=== PATIENT | male | born 1950 | race Caucasian/White ===

== ENCOUNTER 2018-10-01 06:53 | Day surgery (SDC) | payer OTHER ==
[2018-09-28 09:04] VITALS: BMI 26.6
[2018-10-01] MEDS ORDERED: DEXAMETHASONE SOD PHOSPHATE 4 MG/1 ML VIAL ONE (09:06)
[2018-10-01] MEDS ORDERED: PROPOFOL 20 ML ONE ×2 (09:06→10:44)
[2018-10-01] MEDS ORDERED: LIDOCAINE HCL/PF 2% SDV 5ML VIAL ONE (09:06)
[2018-10-01] MEDS ORDERED: MIDAZOLAM HCL 2 MG/2 ML SINGLE DOSE VIAL ONE (09:07)
[2018-10-01] MEDS ORDERED: BUPIVACAINE HCL/PF 0.5% (5MG/ML) 10 ML VIAL ONE (09:54)
[2018-10-01] MEDS ORDERED: ONDANSETRON 4 MG/2 ML VIAL IVPUSH PRN (10:19)
[2018-10-01] MEDS ORDERED: oxyCODONE HCL 5 MG TABLET PO PRN (10:19)
--- NOTE | 2018-10-01 14:01 | OP ---
Operative Note - Note: Operative Date: 10/01/18 Pre-Operative Diagnosis: bph Operation: transurethral resection and vaporization of the prostate Findings: 3+ obstructive prostate with 2+ trabeculation with cellules Post-Operative Diagnosis: Same as Pre-op Surgeon: Nemesio Brito Anesthesia: Spinal Specimens Removed: prostatic chips Estimated Blood Loss (mls): 40 Drains & Tubes with Location: 24 yi funk catheter
[2018-10-01 14:15] VITALS: BP 136/75; PULSE 72; TEMP 98.1
--- NOTE | 2018-10-03 10:34 | PATH ---
Surgical Pathology Report Patient Name: BREANNA DUMONT [facility]. Rec. #: [id number] /Age/Gender: 1950 (Age: 68) / M Account: [id number] Location: [facility] SURGICAL Taken: 10/01/2018 Received: 10/01/2018 Reported: 10/03/2018 Physicians: Nemesio Brito Specimen(s) Received PROSTATE TISSUE Clinical History BPH Final Diagnosis PROSTATE TISSUE, TRANSURETHRAL RESECTION OF THE PROSTATE: BENIGN PROSTATE TISSUE SHOWING GLANDULAR AND STROMAL HYPERPLASIA WITH CHRONIC PROSTATITIS. 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 Electronically Signed Shahriar Rizo M.D. Gross Description Received in formalin labeled "prostate tissue," is an 11 g, 8.0 x 7.5 x 0.7 cm aggregate of multiple zarate, irregular, firm to rubbery portions of tissue, consistent with prostate tissue. [employer] portions are submitted in 9 cassettes. /10/01/2018 saudi10/01/2018
--- NOTE | 2018-11-04 16:34 | OP ---
DATE OF OPERATION: 10/01/2018 PREOPERATIVE DIAGNOSIS: Benign prostatic hypertrophy. POSTOPERATIVE DIAGNOSIS: Benign prostatic hypertrophy. PROCEDURE: Transurethral resection and transurethral vaporization of the prostate utilizing bipolar system. ATTENDING: Elo Nunez MD ANESTHESIA: Spinal. DESCRIPTION OF OPERATION: The patient was brought in the operating room, placed in supine position on the operating room table. Anesthesia and preoperative antibiotics were administered without complications. Patient was then placed in the dorsal lithotomy position and prepped and draped in the usual sterile manner. A resectoscope was placed under visualization into the bladder. The bladder was investigated and noted to have no evidence of stones or neoplasm. A 3+ obstructive prostate was noted. Resection of the prostate in order to debulk the prostate was performed initially. The margins of the resection were the bladder neck proximally and the verumontanum distally. The resection was performed in a 360-degree fashion. The resection was taken down to the level of the pseudocapsule of the prostate. Once this was performed, all prostatic chips were evacuated from the bladder utilizing the Atavist evacuator. At this point, the working element, which had been the loop, was changed to a button. Vaporization and cauterization was then ensured utilizing the button element of the bipolar system. Residual tissue was vaporized, and excellent hemostasis was attained within the prostatic fossa. The margins of the vaporization and cauterization were the bladder neck proximally and the verumontanum distally. This was done again in a 360-degree fashion. Excellent hemostasis was attained. The bladder was investigated and noted to have no evidence of residual prostatic tissue. There was no evidence of perforation of the bladder. The abdomen was soft on examination during the procedure. With excellent hemostasis, the resectoscope was removed, and a Daily catheter placed, 30 mL were inflated into the balloon of the catheter and placed on light traction. Excellent drainage was noted which was light pink in color. The disposition of the patient was to the recovery room. The catheter had been placed to straight drainage. The patient will be observed in the recovery room and the postop area. If the patient continues to do well, he will be discharged home. ELO NUNEZ M.D. /[id number]
== END 2018-10-01 13:45 | disposition home or self-care (01) ==
LOC: JASU-SURG 06:53
PROVIDERS: ATTEND Urology
PROC: 0VT08ZZ Resection of Prostate, Via Natural or Artificial Opening Endoscopic (ICD-10-PCS; principal; 2018-10-01 09:00)
DX: N40.0 Benign prostatic hyperplasia without lower urinary tract symptoms (principal)
CPT/HCPCS: 88305-TC; 94760